=== PATIENT | male | born 1990 | race American Indian/Alaskan Native ===

== ENCOUNTER 2020-11-27 10:29 | Emergency (ER) | payer SELFPAY ==
[2020-11-27 10:51] VITALS: BP 140/95
--- NOTE | 2020-11-27 11:18 | Emergency Department Report ---
Chief Complaint: Urogenital-Male Stated Complaint: POSSIBLE UTI Time Seen by Provider: 11/27/20 11:13 - HPI History of Present Illness: 30-year-old -[place] male presents to the emergency room reporting penile discharge since last night. Patient denies any testicular pain no testicular swelling no fever no chills. Does admit that he had unprotected sex after condom had broken. - Exam Vital Signs: Vital Signs 11/27/20 10:49 Temperature 98.9 F Pulse Rate 100 H Respiratory 20 Rate Blood Pressure 140/95 O2 Sat by Pulse 95 Oximetry Physical Exam: General: Awake, appropriately interactive, no acute distress. Neck: Supple. Full range of motion intact. Cardiovascular: Normal peripheral perfusion. Pulmonary: No respiratory distress. Patient is speaking normally without use of accessory muscles. Skin: No apparent rashes or lesions. Neurological: No facial asymmetry. Speech is clear. Follows commands. Patient is alert and oriented. Musculoskeletal: Full range of motion, Able to bear weight and ambulate without difficulty. Distal neurovascular and motor/sensory function is intact. Psych: Cooperative. Appropriate mood and affect. MSE screening note: Focused history and physical exam performed. Due to findings the following was ordered: 30-year-old -[place] male presents to the emergency room reporting penile discharge since last night. Patient denies any testicular pain no testicular swelling no fever no chills. Does admit that he had unprotected sex after condom had broken. Patient referred to urgent care center. And [facility]. ED Disposition for MSE Disposition: 01 HOME / SELF CARE / HOMELESS Is pt being admited?: No Does the pt Need Aspirin: No Condition: Stable Additional Instructions: Referral to health department urgent care for evaluation and treatment. Referrals: [facility] [Outside] - 3-5 Days [facility] [Outside] - 3-5 Days Time of Disposition: 11:20
== END 2020-11-27 11:20 | disposition home or self-care (01) ==
LOC: ED 10:29
DX: N48.9 Disorder of penis, unspecified (principal)
CPT/HCPCS: 99281